=== PATIENT | female | born 1945 | race Caucasian/White ===

== ENCOUNTER 2022-07-09 09:49 | Outpatient (CLI) | payer MEDICARE, BC | END 2022-07-09 09:50 | disposition home or self-care (01) | LOC: RAD 09:49 | PROVIDERS: ATTEND Internal Medicine Gastroenterology | DX: K21.9 Gastro-esophageal reflux disease without esophagitis (principal); R68.81 Early satiety; K44.9 Diaphragmatic hernia without obstruction or gangrene; R14.0 Abdominal distension (gaseous); M35.9 Systemic involvement of connective tissue, unspecified; F43.9 Reaction to severe stress, unspecified; I48.91 Unspecified atrial fibrillation | CPT/HCPCS: 74246 ==

== ENCOUNTER 2025-04-06 15:42 | Outpatient (CLI) | payer MEDICARE | END 2025-04-06 15:43 | disposition home or self-care (01) | LOC: SCSRAD 15:42 | PROVIDERS: ATTEND Family Medicine | DX: R50.9 Fever, unspecified (principal) | CPT/HCPCS: 36415; 71046; 80053; 85025 ==